=== PATIENT | female | born 2000 | race African-American/Black ===

== ENCOUNTER 2023-01-15 16:19 | Emergency (ER) | payer SELFPAY ==
[~2023-01-15] VITALS: Ht 152.4 cm; Wt 45.0 kg
[2023-01-15 16:35] VITALS: BP 102/62
[2023-01-15 19:38] LABS: CHLORIDE 106 mEq/L (98-107)
[2023-01-15 19:42] LABS: BASOPHILS % 0.2 % (0.0-2.0); EOSINOPHILS % 0.6 % (0.0-5.0); HEMATOCRIT. 35.6 % (36.0-48.0); LYMPHOCYTES % 43.5 % (20.0-50.0); MEAN CORPUSCULAR HEMOGLOBIN 28.4 pg (28.0-32.0); MEAN CORPUSCULAR VOLUME 84.5 fL (81.0-99.0); MEAN PLATELET VOLUME 7.7 fl (7.4-10.4); MONOCYTES % 3.5 % (2.0-8.0); NEUTROPHILS % 52.2 % (40.0-76.0); PLATELET 359 x1000/uL (130-400); RED BLOOD CELL COUNT 4.21 mill/uL (4.2-5.4)
== END 2023-01-15 21:49 | disposition home or self-care (01) ==
LOC: ER 16:19
DX: N91.2 Amenorrhea, unspecified (principal)
CPT/HCPCS: 36415; 80053; 85025; 99283